=== PATIENT | male | born 2000 | race Caucasian/White ===

== ENCOUNTER 2022-06-18 21:37 | Emergency (ER) | payer MEDICAID ==
[2022-06-18 21:57] VITALS: BP 140/96; PULSE 63
== END 2022-06-18 23:04 | disposition home or self-care (01) ==
LOC: JP.ED 21:37
DX: K01.1 Impacted teeth (principal); F17.210 Nicotine dependence, cigarettes, uncomplicated; Z79.899 Other long term (current) drug therapy
CPT/HCPCS: 99282

== ENCOUNTER 2023-01-04 07:54 | Emergency (ER) | payer MEDICAID ==
[2023-01-04 08:07] VITALS: BP 112/71; PULSE 47
[2023-01-04] MEDS ORDERED: Ibuprofen 600 MG Tab PO ONE (08:11)
== END 2023-01-04 08:23 | disposition home or self-care (01) ==
LOC: JP.ED 07:54
DX: H65.92 Unspecified nonsuppurative otitis media, left ear (principal); F17.210 Nicotine dependence, cigarettes, uncomplicated
CPT/HCPCS: 99283; A9270

== ENCOUNTER 2023-02-14 13:03 | Emergency (ER) | payer MEDICAID ==
[2023-02-14 13:19] VITALS: BP 118/73; PULSE 68
== END 2023-02-14 13:57 | disposition home or self-care (01) ==
LOC: JP.ED 13:03
DX: K08.89 Other specified disorders of teeth and supporting structures (principal)
CPT/HCPCS: 99283

== ENCOUNTER 2023-12-22 14:28 | Emergency (ER) | payer MEDICAID ==
[2023-12-22 14:47] VITALS: BP 120/76; PULSE 60
== END 2023-12-22 15:02 | disposition home or self-care (01) ==
LOC: JP.ED 14:28
DX: K02.9 Dental caries, unspecified (principal)
CPT/HCPCS: 99282

== ENCOUNTER 2024-03-26 19:28 | Emergency (ER) | payer MEDICAID ==
[2024-03-26 21:17] VITALS: BP 113/74; PULSE 70
== END 2024-03-26 21:40 | disposition home or self-care (01) ==
LOC: JP.ED 19:28
DX: K08.89 Other specified disorders of teeth and supporting structures (principal)
CPT/HCPCS: 99282; 99283